=== PATIENT | female | born 1995 | race American Indian/Alaskan Native ===

== ENCOUNTER 2024-12-27 01:30 | Emergency (ER) | payer BC, OTHER ==
[~2024-12-27 01:30] MED LIST: NITR-60 PO; NO HOME MEDS
[2024-12-27 01:31] VITALS: BP 121/86; PULSE 86; RESP 15; TEMP 97.6; O2SAT 95
== END 2024-12-27 03:07 | disposition left against medical advice (07) ==
LOC: ER 01:30
DX: Z00.8 Encounter for other general examination (principal); Z53.21 Procedure and treatment not carried out due to patient leaving prior to being seen by health care provider

== ENCOUNTER 2025-03-26 17:32 | Emergency (ER) | payer BC, OTHER ==
[~2025-03-26] VITALS: Ht 157.5 cm; Wt 105.7 kg
[2025-03-26 17:41] VITALS: BP 147/87; PULSE 102; O2SAT 98
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
--- NOTE | 2025-03-26 18:43 | RADIOLOGY REPORT ---
COMPUTERIZED TOMOGRAPHY OF THE HEAD WITHOUT CONTRAST REASON FOR STUDY: headache with vision changes x 3 days. COMPARISON: None TECHNIQUE: Helical tomographic scans were obtained through the brain. 2-D coronal and sagittal reformatted images are provided. Radiation optimization: All CT scans at this facility use at least one of these dose optimization techniques: Automated exposure control mA and/or kV adjustment per patient size (includes targeted exams where dose is matched to clinical indication) or iterative reconstruction. RADIATION DOSE: CTDI: 60 mGy DLP: 1170 mGy-cm FINDINGS: No suspicious intracranial hyperdensity to suggest acute blood. There is no mass effect nor midline shift. There is no hydrocephalus. The suprasellar cistern is intact. The calvarium is intact. The visualized mastoid air cells and paranasal sinuses are clear. The intraorbital contents appear normal. Ulna Praveen IMPRESSION: No acute intracranial abnormality.
[2025-03-26 19:06] VITALS: RESP 18
[2025-03-26] MEDS: ketorolac trometh 30MG/ML vial 30 MG/ML VIAL IM ONE (19:06)
[2025-03-26 19:23] VITALS: TEMP 97.3
== END 2025-03-26 19:26 | disposition home or self-care (01) ==
LOC: ER 17:33
DX: R51.9 Headache, unspecified (principal); M54.12 Radiculopathy, cervical region; I48.91 Unspecified atrial fibrillation; Z79.899 Other long term (current) drug therapy; V49.9XXA Car occupant (driver) (passenger) injured in unspecified traffic accident, initial encounter; Y93.89 Activity, other specified; Y92.89 Other specified places as the place of occurrence of the external cause; Y99.8 Other external cause status
CPT/HCPCS: 70450; 96372; 99285; J1885; J2919

== ENCOUNTER 2025-04-04 16:27 | Emergency (ER) | payer BC, OTHER ==
[~2025-04-04] VITALS: Ht 157.5 cm; Wt 106.9 kg
--- NOTE | 2025-04-04 16:35 | ELECTROCARDIOGRAPH REPORT ---
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 Juma Norman Measurements Intervals Sayre Rate: 114 P: 64 ID: [id number] QRS: 115 QRSD: 95 T: -20 QT: 339 QTc: 467 Interpretive Statements Sinus tachycardia Right axis deviation Low voltage, precordial leads Borderline T abnormalities, anterior leads Electronically Signed On 04-06-2025 9:40:[address] Juma Norman Please click the below link to view image of tracing.
[2025-04-04 16:45] LABS: MEAN PLATELET VOLUME 9.0 FL (7.4-10.4); RED CELL DISTRIBUTION WIDTH 12.7 % (11.5-14.5)
--- NOTE | 2025-04-04 16:59 | RADIOLOGY REPORT ---
EXAM: DI CHEST,SINGLE VIEW HISTORY: CP TECHNIQUE: 1 view of the chest COMPARISON: None FINDINGS/IMPRESSION: LUNGS: Low lung volumes, which cause crowding of the bronchovascular markings. Hazy left mid to lower lung and right lung base opacification. Central pulmonary vascular congestion. MEDIASTINUM: Unremarkable. BONES: No acute osseous abnormality. OTHER: None.
[2025-04-04 17:05] LABS: CREATININE 0.56 MG/DL (0.40-0.90); PRO BRAIN NATRIURETIC PEPTIDE < 30 PG/ML (0-125); TOTAL CARBON DIOXIDE 24.6 MMOL/L (24-32); eCRCL 116 ML/MIN; eGFR > 90 ML/MIN
[2025-04-04] MEDS: potassium Cl 20 mEq SR tablet PO STA (18:15)
[2025-04-04] MEDS ORDERED: PROP10TA10 PO (19:14)
--- NOTE | 2025-04-04 19:15 | Physician Documentation ---
History of Present Illness ~ Chief Complaint: Chest Pain Stated Complaint: SOB/ CHEST PAIN Time Seen by MD: 16:50 Primary Medical Doctor: Claudia Estrada Source: patient Mode of Arrival: POV, Wheelchair Exam Limitations: no limitations HEART Score: 0 HPI 30-year-old female with chief complaint episode of chest pain that occurred earlier today. She states that this has been an ongoing issue now for several months. She is now seeing a card decorator she states she is also seeing an an magneto specialist. She was diagnosed with hyperthyroidism but currently this is not being treated as she states that they are just monitoring her in the magneto specialist is waiting for her Zio patch to come back. She has an appointment on April 28 to get the Zio patch placed. She reports that what generally precedes the chest pain is a sensation that her heart is racing and then she will start feeling very anxious and then she will experience chest pain. She states that the symptoms seemed to just come out of the blue. She has not noticed any triggers. No history of syncopal episodes. No shortness of breath. Denies depression. Medication Reconciliation Allergies: Coded Allergies: No Known Allergies (Unverified , 04/04/25) Scheduled Nitrofurantoin/Nitrofuran Mac (Macrobid 100 Mg Capsule), 100 MG PO BID Miscellaneous Medications Home Med List (No Home Medications), (Reported) Past Medical History Past Surgical History: noncontributory Smoking Status: Never smoker Alcohol Use: None Drug Use: none Lives with: Family Lives In: Home Occupation: student Review of Systems All Other Systems at this time: Reviewed and Negative Physical Exam Vital Signs: Temperature: 97.3, Source: Temporal, Heart Rate: 107, Respiratory Rate: 16, BP: 119/81, Pulse Oximetry: 98, Weight: 106.900 Oxygen Flow Rate: 0 Physical Exam GENERAL: Alert, no acute distress. HEENT: NCAT, EOMI, PERRL, normal oropharynx, moist oral mucosa. NECK: Supple, trachea midline. CARDIAC: ELEVATED RATE, Regular rhythm, no murmurs, rubs, or gallops. Equal distal pulses. No lower extremity edema, cap refill less than 2 seconds. RESPIRATORY: Equal breath sounds, clear to auscultation bilaterally, no respiratory distress. GASTROINTESTINAL: Non distended, soft, nontender, No guarding or rebound. MUSCULOSKELETAL: Normal range of motion, nontender, no swelling. Normal gait. NEUROLOGICAL: Awake, alert, and oriented x 3. SKIN: Warm/dry, no pallor, no rash. PSYCH: Alert and appropriate. Affect congruent with mood. Speech is clear. Good eye contact. Progress Results/Orders Results/Orders Completed Orders - NIKA SNOW Potassium Cl Sr Tablet (K-Dur Tablet) (04/04/25 17:57) Alprazolam Tablet (Xanax Tablet) (04/04/25 18:00) Propanolol Tablet (Inderal Tablet) (04/04/25 19:00) Medications Received in ER Medications (Trade) Dose Ordered Sig/Bambi Route PRN Reason Start Time Stop Time Status Last Admin Dose Admin (K-DUR tablet) 40 meq ONCE STAT PO 04/04/25 17:57 04/04/25 17:59 DC 04/04/25 18:15 40 MEQ (Xanax tablet) 1 mg ONCE ONCE PO 04/04/25 18:00 04/04/25 18:01 DC 04/04/25 18:16 1 MG Vital Signs 04/04/25 04/04/25 04/04/25 04/04/25 16:29 16:29 16:48 18:19 Temp 97.3 Pulse 134 107 Resp 26 24 16 B/P (MAP) 156/113 119/81 (94) Pulse Ox 100 99 98 O2 Delivery Room Air* O2 Flow Rate 0 0 0 FiO2 21 Laboratory Tests Test 04/04/25 16:36 04/04/25 18:43 White Blood Count 11.5 H Red Blood Count 5.35 Hemoglobin 15.1 Hematocrit 44.1 Mean Corpuscular Volume 82.5 Mean Corpuscular Hemoglobin 28.3 Mean Corpuscular Hemoglobin Concent 34.3 Red Cell Distribution Width 12.7 Platelet Count 238 Mean Platelet Volume 9.0 Neutrophils (%) (Auto) 66.5 Lymphocytes (%) (Auto) 23.9 Monocytes (%) (Auto) 7.9 Eosinophils (%) (Auto) 1.2 Basophils (%) (Auto) 0.5 Neutrophils # (Auto) 7.6 Lymphocytes # (Auto) 2.7 Monocytes # (Auto) 0.9 Eosinophils # (Auto) 0.1 Basophils # (Auto) 0.1 CBC Comment Sodium Level 138 Potassium Level 3.1 L Chloride Level 103 Carbon Dioxide Level 24.6 Anion Gap 10 Blood Urea Nitrogen 10 Creatinine 0.56 Estimated GFR/1.73 m2 > 90 BUN/Creatinine Ratio 17.9 Glucose Level 101 Calcium Level 8.9 Troponin I High Sensitivity < 4 L Troponin I High Sens Percent Delta Troponin I Hi Sens Absolute Change Pro-B-Type Natriuretic Peptide < 30 Albumin 4.1 Chemistry Comments Heart Score: Heart Score Response (Comments) Value History Slightly Suspicious 0 EKG Normal 0 Age <45 0 Risk Factors No known risk factors 0 Troponin Normal limit 0 Total 0 Medical Decision Making Additional information obtaine: N/A Findings n/a Heart Score: 0 Differential Dx:Considerations: Include: angina, aortic dissection, chest wall pain, cholelithiasis, CHF, costochondritis, esophageal reflux/spasm, gastritis, herpes zoster, myocardial infarction, pericarditis, pleuritis, pancreatitis, pneumonia, pneumothorax, pulmonary embolus, other Additional Information Patient is slightly tachycardic pulmonary embolism is in the differential however patient's symptoms have been coming and going now for several months I explained that if it was a pulmonary embolism she would not have episodes where she is symptomatic and then be able to exert herself to the same level and be completely asymptomatic. Patient's hyperthyroidism may be contributing to her tachycardia it sounds like there gathering more data on this. Since she has been here her heart rate has been consistently just above 100. We discussed giving her a low dosage of propranolol which she would like to try. Lab work unremarkable other than slightly low potassium Departure Time of Disposition: 19:14 Disposition: 01 HOME / SELF CARE / HOMELESS Impression: Primary Impression: Sinus tachycardia Additional Impressions: Hyperthyroidism Anxiety Condition: Stable Discharge Instructions: Sinus Tachycardia Additional Instructions: We mutually agreed that a trial of propranolol would be beneficial. We gave you a dosage here I sent a prescription to your pharmacy. If you experience any new concerning symptoms, return to ER. Follow up with Cardiology as scheduled on the for your Holter monitor and then your magneto specialist. Referrals: NO PRIMARY CARE PROVIDER (PCP) Prescriptions Propranolol Hcl* (Inderal*) 10 Mg Tablet 1 TAB PO BID for 30 Days, #60 TAB disregard above instructions and follow my instructions 1-2 po qd prn anxiety Prov: NIKA SNOW 04/04/25 Signature Scribe Signature: x Attestation: NIKA Jimenez Apr 04, 2025 19:15
[2025-04-04] MEDS: propranolol 10mg tablet PO ONE (20:02)
[2025-04-04 20:06] VITALS: BP 95/55; PULSE 98; RESP 14; TEMP 97.3; O2SAT 96
== END 2025-04-04 20:08 | disposition home or self-care (01) ==
LOC: ER 16:28
DX: R00.0 Tachycardia, unspecified (principal); F41.9 Anxiety disorder, unspecified; E05.90 Thyrotoxicosis, unspecified without thyrotoxic crisis or storm; Z79.899 Other long term (current) drug therapy
CPT/HCPCS: 36415; 71045; 80048; 83880; 84484; 85025; 93005; 99285

== ENCOUNTER 2025-04-20 05:11 | Emergency (ER) | payer BC, OTHER ==
[~2025-04-20] VITALS: Ht 157.5 cm; Wt 108.0 kg
[~2025-04-20 05:11] MED LIST changes: +PROP10TA10 PO
--- NOTE | 2025-04-20 05:20 | ELECTROCARDIOGRAPH REPORT ---
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 KEVAN Quintero Measurements Intervals Olga Rate: 81 P: 51 VT: 162 QRS: 109 QRSD: 95 T: 7 QT: 359 QTc: 417 Interpretive Statements Sinus rhythm Borderline right axis deviation Low voltage, precordial leads Borderline T abnormalities, anterior leads Electronically Signed On 04-21-2025 18:40:[address] KEVAN Quintero Please click the below link to view image of tracing.
[2025-04-20 05:50] LABS: MEAN PLATELET VOLUME 9.0 FL (7.4-10.4); RED CELL DISTRIBUTION WIDTH 13.2 % (11.5-14.5)
[2025-04-20 06:08] VITALS: TEMP 98.5
--- NOTE | 2025-04-20 06:08 | Physician Documentation ---
History of Present Illness ~ Chief Complaint: Chest Pain Stated Complaint: MULTIPLE COMPLAINT A ALS Time Seen by MD: 06:08 Primary Medical Doctor: Claudia Estrada Mode of Arrival: EMS HPI 30-year-old female, history of hyperthyroidism and anxiety, presenting with chest pain and shortness of breath She tells me that she has been having episodes recently where she feels very anxious, has chest pain shortness of breath, dizziness, and other symptoms. When she woke up this morning she had a significant episode. She reports feeling dizzy, nauseous, short of breath, having chest tightness, and feeling like she was going to . She does have Xanax, which she only has taken twice. She does have propranolol which she is supposed to take as needed, but has not been taking because she wanted to try more natural things. No other new or different symptoms today. Medication Reconciliation Allergies: Coded Allergies: No Known Allergies (Unverified , 04/20/25) Scheduled Nitrofurantoin/Nitrofuran Mac (Macrobid 100 Mg Capsule), 100 MG PO BID Propranolol Hcl* (Inderal*), 1 TAB PO BID Miscellaneous Medications Home Med List (No Home Medications), (Reported) Past Medical History Past Surgical History: noncontributory Alcohol Use: None Drug Use: none Lives with: Family Lives In: Home Occupation: student Review of Systems Constitutional: Denies: fever Respiratory: Reports: shortness of breath Cardiovascular: Reports: chest pain Psychiatric: Reports: anxiety Physical Exam Vital Signs: Temperature: 98.5, Source: Oral, Heart Rate: 81, Respiratory Rate: 12, BP: 110/72, Pulse Oximetry: 97, Weight: 108.000 Physical Exam General: This is a pleasant and mildly anxious appearing young female, mother at bedside HEENT: Atraumatic, oropharynx is moist Heart: Regular rate and rhythm, no murmur, normal-appearing peripheral perfusion Lungs: Clear breath sounds bilateral, normal work of breathing, normal oxygen saturation on room air Abdomen: Soft, nondistended, no significant tenderness to deep palpation in all quadrants Extremities: Warm and well-perfused Neuro: Alert and oriented Psychiatric: Appears mildly anxious but is cooperative with exam Progress Results/Orders Results/Orders Completed Orders - VETO SAHNI MD Propanolol Tablet (Inderal Tablet) (04/20/25 07:00) Medications Received in ER Medications (Trade) Dose Ordered Sig/Bambi Route PRN Reason Start Time Stop Time Status Last Admin Dose Admin (Inderal tablet) 10 mg ONCE ONCE PO 04/20/25 07:00 04/20/25 07:01 DC 04/20/25 07:09 10 MG Vital Signs 04/20/25 04/20/25 04/20/25 04/20/25 05:13 05:47 06:02 06:08 Temp 98.5 98.5 98.5 Pulse 66 81 99 Resp 14 13 12 16 B/P (MAP) 122/85 110/72 (85) 120/68 (85) Pulse Ox 97 97 97 04/20/25 04/20/25 07:10 07:37 Pulse 85 Resp 11 B/P (MAP) 105/74 Pulse Ox 95 Laboratory Tests Test 04/20/25 05:23 White Blood Count 9.1 Red Blood Count 4.53 Hemoglobin 13.2 Hematocrit 37.8 Mean Corpuscular Volume 83.4 Mean Corpuscular Hemoglobin 29.1 Mean Corpuscular Hemoglobin Concent 34.8 Red Cell Distribution Width 13.2 Platelet Count 231 Mean Platelet Volume 9.0 Neutrophils (%) (Auto) 74.3 Lymphocytes (%) (Auto) 16.7 L Monocytes (%) (Auto) 5.0 Eosinophils (%) (Auto) 3.3 Basophils (%) (Auto) 0.7 Neutrophils # (Auto) 6.7 Lymphocytes # (Auto) 1.5 Monocytes # (Auto) 0.4 Eosinophils # (Auto) 0.3 Basophils # (Auto) 0.1 CBC Comment Sodium Level 145 Potassium Level 3.4 L Chloride Level 107 Carbon Dioxide Level 26.9 Anion Gap 11 Blood Urea Nitrogen 11 Creatinine 0.61 Estimated GFR/1.73 m2 > 90 BUN/Creatinine Ratio 18.0 Glucose Level 110 H Calcium Level 8.4 L Troponin I High Sensitivity < 4 L Troponin I High Sens Percent Delta Troponin I Hi Sens Absolute Change Pro-B-Type Natriuretic Peptide 40 Albumin 3.8 Chemistry Comments EKG/XRAY/CT/US/VASC/MRI EKG : Additional Comment I personally interpreted the EKG and this shows: Sinus rhythm, rate 81, QTC 417, no STEMI Chest X-Ray : Additional Comments I personally interpreted the x-ray, and it shows: Mild fullness in the peribronchial region which appears similar previous chest x-ray, no focal consolidation, no pneumothorax Heart Score: Heart Score Response (Comments) Value History Slightly Suspicious 0 EKG Normal 0 Age <45 0 Risk Factors No known risk factors 0 Troponin Normal limit 0 Total 0 Medical Decision Making Additional information obtaine: old records Findings Reviewed previous records Heart Score: 0 Differential Dx:Considerations: Include: chest wall pain, cholelithiasis, CHF, costochondritis, myocardial infarction, pulmonary embolus Additional Information Differential includes anxiety or panic attack, hyperthyroidism Assessment The patient presents with chest pain, shortness of breath and other associated symptoms. Per her history and exam, this seems most likely anxiety or a panic attack, possibly triggered by underlying thyroid disease. Her workup today does not show evidence of ACS. I doubt PE. No other dangerous process identified. She was given a dose of propranolol which is her home medication that she did not start taking yet. She was reassured and discharged with outpatient follow up. Departure Time of Disposition: 07:06 Disposition: 01 HOME / SELF CARE / HOMELESS Impression: Primary Impression: Panic attack as reaction to stress Additional Impression: Hyperthyroidism Condition: Improved Discharge Instructions: Panic Attack Referrals: NO PRIMARY CARE PROVIDER (PCP) Education Educated: Patient, Family Educated regarding: diagnosis, treatment, need for follow up Signature Scribe Signature: na Attestation: VETO Morris MD Apr 20, 2025 06:08
[2025-04-20 06:18] LABS: CREATININE 0.61 MG/DL (0.40-0.90); PRO BRAIN NATRIURETIC PEPTIDE 40 PG/ML (0-125); TOTAL CARBON DIOXIDE 26.9 MMOL/L (24-32); eCRCL 107 ML/MIN; eGFR > 90 ML/MIN
--- NOTE | 2025-04-20 06:20 | RADIOLOGY REPORT ---
CHEST RADIOGRAPH Indication: CP Technique: Single frontal view of the chest was obtained Comparison: DI CHEST,SINGLE VIEW on DOS: 04/04/25 FINDINGS: Lines and Tubes: None Lungs: There are bilateral central pulmonary opacities. Pleura: No effusion. No pneumothorax. Cardiomediastinal contours: Unremarkable Bones: No acute osseous abnormality. IMPRESSION: 1. Bilateral central pulmonary opacities which may reflect pulmonary edema or infection.
[2025-04-20] MEDS: propranolol 10mg tablet PO ONE (07:09)
[2025-04-20 07:37] VITALS: BP 105/74; PULSE 85; RESP 11; O2SAT 95
== END 2025-04-20 07:38 | disposition home or self-care (01) ==
LOC: ER 05:12
DX: F41.0 Panic disorder [episodic paroxysmal anxiety] (principal); F43.0 Acute stress reaction; E05.90 Thyrotoxicosis, unspecified without thyrotoxic crisis or storm; Z79.899 Other long term (current) drug therapy
CPT/HCPCS: 36415; 71045; 80048; 83880; 84484; 85025; 93005; 99285